=== PATIENT | male | born 1950 | race American Indian/Alaskan Native ===

== ENCOUNTER 2018-05-06 17:16 | Emergency (ER) | payer OTHER, MEDICARE ==
[2018-05-06 17:26] VITALS: BP 138/88
[2018-05-06] MEDS ORDERED: MOTRIN PO ONE (22:12)
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
== END 2018-05-06 22:35 | disposition home or self-care (01) ==
LOC: ED 17:16
DX: R07.9 Chest pain, unspecified (principal); I10 Essential (primary) hypertension; E11.9 Type 2 diabetes mellitus without complications; E78.00 Pure hypercholesterolemia, unspecified; V49.49XA Driver injured in collision with other motor vehicles in traffic accident, initial encounter; Y93.89 Activity, other specified; Y92.89 Other specified places as the place of occurrence of the external cause; Y99.8 Other external cause status
CPT/HCPCS: 93005; 93010